=== PATIENT | male | born 1985 | race Two or more races ===

== ENCOUNTER 2023-11-25 06:48 | Emergency (ER) | payer OTHER ==
[~2023-11-25] VITALS: Ht 185.4 cm; Wt 113.9 kg
[2023-11-25] MEDS ORDERED: ACETAMINOPHEN 500 MG GEL..CAP PO ONE ×2 (08:58→09:00)
[2023-11-25 09:42] LABS: HEMATOCRIT 44.1 % (39.0-48.0); HEMOGLOBIN 15.4 g/dL (13-16.00); MEAN CELL VOLUME 86.1 fL (80.0-100.00); MEAN CORPUSCULAR HGB CONC 34.8 g/dl (32.0-36.0); PLATELET COUNT 224 K/uL (150-450); RED BLOOD COUNT 5.12 M/uL (4.00-6.00); RED CELL DISTRIBUTION WIDTH 13.9 % (11.5-14.5)
[2023-11-25 10:26] LABS: CALCIUM 9.2 mg/dL (8.5-10.1); CREATININE SERUM 0.68 mg/dL (0.70-1.30); GFR 129.15; POTASSIUM 4.05 mEq/L (3.5-5.1)
[2023-11-25] MEDS ORDERED: BENZONATATE100 MG PO (11:18)
[2023-11-25] MEDS ORDERED: AMOX1TAB5 PO (11:18)
== END 2023-11-25 11:32 | disposition home or self-care (01) ==
LOC: ER 06:50
PROVIDERS: General Practice
DX: B34.9 Viral infection, unspecified (principal); R53.81 Other malaise; Z20.822 Contact with and (suspected) exposure to COVID-19

== ENCOUNTER 2023-12-16 07:47 | Emergency (ER) | payer OTHER ==
[~2023-12-16] VITALS: Ht 177.8 cm; Wt 90.7 kg
[~2023-12-16 07:47] MED LIST: AMOX1TAB5 PO; BENZONATATE100 MG PO
[2023-12-16 07:58] VITALS: BP 111/73; O2SAT 98
[2023-12-16] MEDS ORDERED: TETANUS & DIPHTHERIA TOX,ADULT 0.5 ML VIAL IM STA (08:21)
== END 2023-12-16 08:54 | disposition home or self-care (01) ==
LOC: ER 07:48
DX: S90.852A Superficial foreign body, left foot, initial encounter (principal); X58.XXXA Exposure to other specified factors, initial encounter; Y93.89 Activity, other specified; Y92.89 Other specified places as the place of occurrence of the external cause; Y99.9 Unspecified external cause status

== ENCOUNTER 2024-03-24 14:47 | Emergency (ER) | payer OTHER ==
[~2024-03-24] VITALS: Ht 177.8 cm; Wt 86.2 kg
[2024-03-24] MEDS ORDERED: CLINDAMYCIN PHOSPHATE 150 MG/ML (600mg) IM ONE (17:15)
[2024-03-24] MEDS ORDERED: CLINDAMYCIN PHOSPHATE 150 MG/ML (900mg) ONE (17:15)
[2024-03-24] MEDS ORDERED: CLEOCIN HCL300 MG PO (19:55)
[2024-03-24] MEDS ORDERED: INTESTINEX680 M1 PO (19:55)
== END 2024-03-24 20:31 | disposition home or self-care (01) ==
LOC: ER 14:50
DX: S91.311S Laceration without foreign body, right foot, sequela (principal); X58.XXXS Exposure to other specified factors, sequela

== ENCOUNTER 2024-07-26 10:11 | Emergency (ER) | payer OTHER ==
[~2024-07-26] VITALS: Ht 185.4 cm; Wt 119.7 kg
[~2024-07-26 10:11] MED LIST changes: +CLEOCIN HCL300 MG PO; +INTESTINEX680 M1 PO
[2024-07-26] MEDS ORDERED: CETIRIZINE HCL 5 MG/5 ML ML PO ONE (12:15)
[2024-07-26] MEDS ORDERED: KETOROLAC TROMETHAMINE 60 MG VIAL IM ONE ×2 (12:15→13:42)
[2024-07-26] MEDS ORDERED: CETIRIZINE HCL 5MG/5ML BLIST.PACK PO ONE (13:43)
[2024-07-26 14:11] LABS: BASO % 0.4 % (0.1-1.2); EOS # 0.36 (0.04-0.54); EOS % 3.2 % (0.7-7.0); HEMATOCRIT 44.7 % (40.1-51.0); HEMOGLOBIN 15.3 g/dL (13.7-17.5); LYMPH # 2.64 (1.18-3.74); LYMPH % 23.6 % (19.3-53.1); MEAN CORPUSCULAR HEMOGLOBIN 29.3 pg (25.6-32.2); MONO # 1.02 (0.24-0.82); MONO % 9.1 % (4.7-12.5); NEUT # 7.11 (1.56-6.13); NEUT % 63.4 % (34.0-71.1); PLATELET COUNT 243 K/uL (163-369); RED BLOOD COUNT 5.22 M/uL (4.63-6.08); RED CELL DISTRIBUTION WIDTH 12.9 % (11.6-14.4)
[2024-07-26 14:58] LABS: COVID-19 AG NEGATIVE (NEGATIVE); INFLUENZA A AG NEGATIVE (NEGATIVE)
[2024-07-26] MEDS ORDERED: ZYRTEC10 MG PO (15:25)
[2024-07-26] MEDS ORDERED: PEPCID AC20 MG PO (15:25)
[2024-07-26] MEDS ORDERED: NORFLEX100MG PO (15:25)
== END 2024-07-26 16:37 | disposition home or self-care (01) ==
LOC: ER 10:11
PROVIDERS: General Practice
DX: M54.50 Low back pain, unspecified (principal); R09.81 Nasal congestion; Z20.822 Contact with and (suspected) exposure to COVID-19

== ENCOUNTER 2024-09-01 07:39 | Emergency (ER) | payer OTHER ==
[~2024-09-01] VITALS: Ht 182.9 cm; Wt 117.9 kg
[~2024-09-01 07:39] MED LIST changes: +NORFLEX100MG PO; +PEPCID AC20 MG PO; +ZYRTEC10 MG PO
[2024-09-01] MEDS ORDERED: ONDANSETRON HCL 2 MG/ML VIAL IV STA (09:27)
[2024-09-01] MEDS ORDERED: FAMOTIDINE/PF 20 MG/2 ML VIAL IV PUSH STA (09:27)
[2024-09-01] MEDS ORDERED: ONDANSETRON HCL 2 MG/ML VIAL ONE (09:39)
[2024-09-01] MEDS ORDERED: FAMOTIDINE/PF 20 MG/2 ML VIAL ONE (09:39)
[2024-09-01 10:08] LABS: BASO % 0.1 % (0.1-1.2); EOS # 0.12 (0.04-0.54); EOS % 0.9 % (0.7-7.0); HEMATOCRIT 46.8 % (40.1-51.0); HEMOGLOBIN 15.5 g/dL (13.7-17.5); LYMPH # 1.84 (1.18-3.74); LYMPH % 13.6 % (19.3-53.1); MEAN CORPUSCULAR HEMOGLOBIN 28.5 pg (25.6-32.2); MONO # 1.21 (0.24-0.82); MONO % 8.9 % (4.7-12.5); NEUT # 10.29 (1.56-6.13); NEUT % 76.1 % (34.0-71.1); PLATELET COUNT 262 K/uL (163-369); RED BLOOD COUNT 5.43 M/uL (4.63-6.08); RED CELL DISTRIBUTION WIDTH 12.9 % (11.6-14.4)
== END 2024-09-01 11:45 | disposition home or self-care (01) ==
LOC: ER 07:54
PROVIDERS: Emergency Medicine
DX: R10.84 Generalized abdominal pain (principal)